=== PATIENT | female | born 1995 | race Caucasian/White ===

== ENCOUNTER 2017-12-10 16:01 | Emergency (ER) | payer OTHER ==
[~2017-12-10] VITALS: Ht 167.6 cm; Wt 125.0 kg
[2017-12-10 16:15] VITALS: BP 106/60; PULSE 101; RESP 20; TEMP 98.3; O2SAT 99
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
[2017-12-10] MEDS ORDERED: IBUPROFEN 800 MG TAB PO ONE (17:15)
[2017-12-10] MEDS ORDERED: CYCL10TA PO (17:19)
[2017-12-10] MEDS ORDERED: IBUP1TAB7 PO (17:19)
[2017-12-10 18:09] VITALS: BP 77/47; PULSE 68; RESP 18; O2SAT 100
[2017-12-10] MEDS ORDERED: SODIUM CHLORIDE 0.9% FLUSH 10 ML FLUSH IVF PRN (18:15)
[2017-12-10] MEDS ORDERED: SODIUM CHLOR 0.9% 1000 ML INJ 1,000 ML IV SCH (18:15)
[2017-12-10] MEDS ORDERED: SODIUM CHLORIDE 0.9% FLUSH 10 ML FLUSH IV FLUSH PRN (18:15)
[2017-12-10 18:29] VITALS: BP 116/73; PULSE 76; RESP 18; O2SAT 100
[2017-12-10 18:41] LABS: AUTOMATED NEUTROPHIL # 21.8 TH/MM3 (1.8-7.7); BASOPHIL # 0.1 TH/MM3 (0-0.2); BASOPHIL % 0.3 % (0.0-2.0); EOSINOPHIL % 0.1 % (0.0-4.0); HEMATOCRIT 43.6 % (35.0-46.0); HEMOGLOBIN 14.7 GM/DL (11.6-15.3); LYMPH % 7.1 % (9.0-44.0); LYMPHOCYTE # 1.8 TH/MM3 (1.0-4.8); MEAN CELL VOLUME 87.6 FL (80.0-100.0); MEAN CORPUSCULAR HEMOGLOBIN 29.6 PG (27.0-34.0); MEAN CORPUSCULAR HGB CONC 33.7 % (32.0-36.0); MONO % 5.4 % (0.0-8.0); MONOCYTE # 1.3 TH/MM3 (0-0.9); NEUT % 87.1 % (16.0-70.0); PLATELET COUNT 316 TH/MM3 (150-450); RED BLOOD COUNT 4.98 MIL/MM3 (4.00-5.30); RED CELL DISTRIBUTION WIDTH 13.6 % (11.6-17.2); WHITE BLOOD COUNT 25.1 TH/MM3 (4.0-11.0)
[2017-12-10 18:47] LABS: INTERNATIONAL NORMALIZED RATIO 1.1 RATIO; PROTHROMBIN TIME - PATIENT 10.7 SEC (9.8-11.6)
[2017-12-10 18:55] LABS: ALBUMIN 3.7 GM/DL (3.4-5.0); AST (GOT) 21 U/L (15-37); BICARBONATE 24.4 MEQ/L (21.0-32.0); BLOOD UREA NITROGEN 14 MG/DL (7-18); CALCIUM 8.9 MG/DL (8.5-10.1); CHLORIDE 107 MEQ/L (98-107); CREATININE 0.71 MG/DL (0.50-1.00); GLOMERULAR FILTRATION RATE 101 ML/MIN (>89); GLUCOSE,RANDOM 104 MG/DL (74-106); SODIUM (NA) 142 MEQ/L (136-145)
[2017-12-10 18:56] LABS: ALT (GPT) 32 U/L (10-53)
[2017-12-10 18:58] LABS: ALKALINE PHOSPHATASE 69 U/L (45-117); TOTAL BILIRUBIN ADULT 0.5 MG/DL (0.2-1.0); TOTAL PROTEIN 7.4 GM/DL (6.4-8.2)
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
[2017-12-10 19:08] VITALS: TEMP 98.5
[2017-12-10 19:09] VITALS: BP 99/58; PULSE 79; RESP 16; O2SAT 98
[2017-12-10] MEDS ORDERED: IOHEXOL 350 MG/ML 10 ML VIAL (for RAD DIAG) IVCONTRAST ONE (19:14)
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
== END 2017-12-10 19:55 | disposition home or self-care (01) ==
LOC: NEPC 16:01
DX: S80.02XA Contusion of left knee, initial encounter (principal); S61.442A Puncture wound with foreign body of left hand, initial encounter; V49.69XA Unspecified car occupant injured in collision with other motor vehicles in traffic accident, initial encounter; W25.XXXA Contact with sharp glass, initial encounter; W45.8XXA Other foreign body or object entering through skin, initial encounter; Y92.410 Unspecified street and highway as the place of occurrence of the external cause; R55 Syncope and collapse
CPT/HCPCS: 70450; 71260; 72125; 73564; 74177; 80053; 85025; 85610; 85730; 99285; J7030; Q9967